=== PATIENT | female | born 1945 | race Caucasian/White ===

== ENCOUNTER 2022-10-05 23:40 | Emergency (ER) | payer MEDICARE, OTHER ==
--- NOTE | 2022-10-06 00:24 | ED Chest Pain ---
General Chief Complaint: Chest Pain Stated Complaint: CHEST DISCOMFORT Source: patient Exam Limitations: no limitations History of Present Illness Date Seen by Provider: Oct 06, 2022 Time Seen by Provider: 00:10 Initial Comments Here with report of onset of central chest tightness that started between 9 and 10 PM. Came in because it persisted. Denies shortness of breath, sweating or weakness but did have some dizziness that she noted yesterday that was interm ittent and brief. She is having 6 out of 10 pain currently. It is nonradiating. She has never had anything like this before. She does have history of high blood pressure. Denies any recent long trips or plane rides or recent trauma or surgery. Denies pain to her legs. Timing/Duration: 1-3 hours Severity/Quality: moderate, tightness Location: central Radiation: no radiation Activities at Onset: none Prior CP/Workup: no prior chest pain, no prior cardiac workup ASA po SHOW GIRL: No NTG SL SHOW GIRL: No Associated Symptoms: No abdominal pain, No back pain; dizziness; No edema, No fatigue, No fever/chills, No nausea/vomiting, No shortness of breath, No swelling/lump in chest, No weakness Allergies and Home Medications Allergies Coded Allergies: No Known Drug Allergies (Unverified , 10/06/22) Patient Home Medication List Home Medication List Reviewed: Yes Review of Systems Review of Systems Constitutional: see HPI; No chills, No fever EENTM: No Symptoms Reported Respiratory: Denies Cough, Denies Shortness of Air Cardiovascular: Chest Pain; Denies Edema, Denies Irregular Heart Rate Gastrointestinal: Denies Abdominal Pain, Denies Nausea, Denies Vomiting Genitourinary: No Symptoms Reported Musculoskeletal: No back pain, No muscle pain Skin: no symptoms reported All Other Systems Reviewed Negative Unless Noted: Yes Past Kizpwgv-Wktztl-Rookuv Hx Patient Social History Tobacco Use?: No Use of E-Cig and/or Vaping dev: No Substance use?: No Alcohol Use?: No Past Medical History Surgeries: Yes Orthopedic Respiratory: No Cardiac: Yes Hypertension Neurological: No Genitourinary: No Gastrointestinal: No Musculoskeletal: No Endocrine: No Family Medical History Reviewed Nursing Family Hx Physical Exam Vital Signs Vital Signs - First Documented 10/05/22 23:45 Temp 36.6 Pulse 96 Resp 16 B/P (MAP) 183/86 (118) Pulse Ox 94 O2 Delivery Room Air Capillary Refill : Height, Weight, BMI Height: '" Weight: lbs. oz. kg; BMI Method: General Appearance: No Apparent Distress, WD/WN HEENT: PERRL/EOMI, Pharynx Normal Neck: Non Tender, Supple Respiratory: Lungs Clear, Normal Breath Sounds Cardiovascular: No Murmur, Tachycardia Gastrointestinal: Non Tender, Soft Extremity: Normal Inspection, Normal Range of Motion, Non Tender, No Calf Tenderness Neurologic/Psychiatric: Alert, Oriented x3, No Motor/Sensory Deficits Skin: Normal Color, Warm/Dry Progress/Results/Core Measures Results/Orders Lab Results Laboratory Tests Test 10/06/22 00:38 10/06/22 02:44 Range/Units White Blood Count 7.4 4.3-11.0 10^3/uL Red Blood Count 4.22 3.80-5.11 10^6/uL Hemoglobin 12.8 11.5-16.0 g/dL Hematocrit 37 35-52 % Mean Corpuscular Volume 88 80-99 fL Mean Corpuscular Hemoglobin 30 25-34 pg Mean Corpuscular Hemoglobin Concent 34 32-36 g/dL Red Cell Distribution Width 12.9 10.0-14.5 % Platelet Count 255 130-400 10^3/uL Mean Platelet Volume 9.9 9.0-12.2 fL Immature Granulocyte % (Auto) 0 % Neutrophils (%) (Auto) 68 42-75 % Lymphocytes (%) (Auto) 22 12-44 % Monocytes (%) (Auto) 7 0-12 % Eosinophils (%) (Auto) 2 0-10 % Basophils (%) (Auto) 1 0-10 % Neutrophils # (Auto) 5.0 1.8-7.8 10^3/uL Lymphocytes # (Auto) 1.6 1.0-4.0 10^3/uL Monocytes # (Auto) 0.5 0.0-1.0 10^3/uL Eosinophils # (Auto) 0.2 0.0-0.3 10^3/uL Basophils # (Auto) 0.1 0.0-0.1 10^3/uL Immature Granulocyte # (Auto) 0.0 0.0-0.1 10^3/uL Prothrombin Time 13.0 12.2-14.7 SEC INR Comment 1.0 0.8-1.4 Activated Partial Thromboplast Time 33 24-35 SEC D-Dimer 0.73 H 0.00-0.49 UG/ML Sodium Level 137 135-145 MMOL/L Potassium Level 3.7 3.6-5.0 MMOL/L Chloride Level 104 98-107 MMOL/L Carbon Dioxide Level 20 L 21-32 MMOL/L Anion Gap 13 5-14 MMOL/L Blood Urea Nitrogen 21 H 7-18 MG/DL Creatinine 1.10 0.60-1.30 MG/DL Estimat Glomerular Filtration Rate 52 BUN/Creatinine Ratio 19 Glucose Level 170 H 70-105 MG/DL Calcium Level 9.9 8.5-10.1 MG/DL Corrected Calcium 9.7 8.5-10.1 MG/DL Magnesium Level 2.1 1.6-2.4 MG/DL Total Bilirubin 0.4 0.1-1.0 MG/DL Aspartate Amino Transf (AST/SGOT) 20 5-34 U/L Alanine Aminotransferase (ALT/SGPT) 23 0-55 U/L Alkaline Phosphatase 60 40-136 U/L Myoglobin 77.6 10.0-92.0 NG/ML Troponin I < 0.028 < 0.028 <0.028 NG/ML Total Protein 6.5 6.4-8.2 GM/DL Albumin 4.3 3.2-4.5 GM/DL Lipase 28 8-78 U/L My Orders Orders - NURIA HARVEY MD Ekg Tracing (10/05/22 23:42) Cbc With Automated Diff (10/06/22:19) Magnesium (10/06/22:19) Chest 1 View, Ap/Pa Only (10/06/22:) Comprehensive Metabolic Panel (10/06/22:) Myoglobin Serum (10/06/22:) Protime With Inr (10/06/22:) Partial Thromboplastin Time (10/06/22:) O2 (10/06/22:) Monitor-Rhythm Ecg Trace Only (10/06/22:) Lipid Panel (10/07/22 06:00) Ed Iv/Invasive Line Start (10/06/22:19) Lipase (10/06/22:) Fibrin Degradation Products (11/7/22 00:19) Troponin I [place] (10/06/22 00:19) Nitroglycerin 0.4 Mg Btl 25's (Nitrostat (10/06/22 00:30) Aspirin Chewable Tablet (Baby Aspirin Ch (10/06/22 00:30) Ed Iv/Invasive Line Start (10/06/22 00:19) Ns Iv 500 Ml (Sodium Chloride 0.9%) (10/06/22 00:30) Troponin I [place] (10/06/22 02:40) Medications Given in ED Current Medications Medications Dose Ordered Sig/Thomas Route Start Time Stop Time Status Last Admin Dose Admin Aspirin 324 mg ONCE ONCE PO 10/06/22 00:30 10/06/22 00:31 DC 10/06/22 00:45 324 MG Nitroglycerin 0.4 mg UD PRN SL 10/06/22 00:30 10/06/22 01:23 0.4 MG Sodium Chloride 500 ml @ 0 mls/hr Q0M ONCE IV 10/06/22 00:30 10/06/22 00:31 DC 10/06/22 00:59 999 MLS/HR Vital Signs/I&O 10/05/22 23:45 Temp 36.6 Pulse 96 Resp 16 B/P (MAP) 183/86 (118) Pulse Ox 94 O2 Delivery Room Air Progress Progress Note : Progress Note Seen and evaluated. IV, labs, EKG and chest x-ray ordered. We will go ahead and do aspirin 324 mg p.o. as well as nitro sublingual to ease chest pain. Normal saline 500 mL bolus ordered due to tachycardia. Monitor patient. 0138: Patient is pain-free. Initial troponin is negative. She is resting peacefully. Given her age and onset of symptoms, we will repeat troponin at around 0240. This will give us 2 hours since previous drawn approximately 5 to 6 hours since onset of pain. Discussed with patient who agrees. Monitor patient. 0323: Repeat troponin is negative. Patient remains pain-free. I do think she would benefit from cardiology follow-up and I will give her the name for Dr. Booker to follow-up with as he is on-call tonight. She will make the call in the morning for follow-up appointment. She will also follow-up with her primary care doctor. Discharged home with return precautions. Patient verbalized understanding of instructions and agreement with plan. Initial ECG Impression Date: Oct 06, 2022 Initial ECG Impression Time: 00:00 Initial ECG Rate: 96 Initial ECG Rhythm: S.Tach Comment Sinus rhythm with left axis deviation. Left axis noted. No evidence of ST elevation [place]. Flat T waves inferior. Interpreted by me. No previous available for comparison. Diagnostic Imaging Diagonstic Imaging: Xray Plain Films/CT/US/NM/MRI: chest Comments Single view chest x-ray shows no acute findings. Interpreted by me. See full report for details. Pending radiology report. Reviewed: Reviewed by Me Departure Impression Primary Impression: Chest pain Qualified Codes: R07.9 - Chest pain, unspecified Disposition: 01 HOME, SELF-CARE Condition: Improved Departure-Patient Inst. Decision time for Depature: 03:24 Referrals: AYE BOOKER MD NO,LOCAL PHYSICIAN (PCP) Primary Care Physician Patient Instructions: Chest Pain (DC) Add. Discharge Instructions: All discharge instructions reviewed with patient and/or family. Voiced und erstanding. Continue home medications as previously prescribed. Follow-up with your doctor this week for recheck and further evaluation. It is very important that you follow-up with the stable helper listed or of your choosing this week for recheck and further evaluation. Call Dr. Booker's office in the morning and let them know that you were seen in the emergency department and we have recommended follow-up this week for recheck and further evaluation with him for the chest pain. They should get you in this week. Return for worse pain, fever, vomiting, weakness, breathing problems, sweating, dizziness or other concerns as needed. NURIA HARVEY MD Oct 06, 2022 00:24
[2022-10-06] MEDS ORDERED: ASPIRIN 81 MG CHEW (CHILDREN'S ASA) PO ONE (00:30)
[2022-10-06] MEDS ORDERED: NS IV 500 ML 500 ML IV ONE (00:30)
[2022-10-06 00:45] LABS: BASOPHILS # (AUTO) 0.1 10^3/uL (0.0-0.1); BASOPHILS % (AUTO) 1 % (0-10); EOSINOPHILS # (AUTO) 0.2 10^3/uL (0.0-0.3); EOSINOPHILS % (AUTO) 2 % (0-10); HEMATOCRIT 37 % (35-52); HEMOGLOBIN 12.8 g/dL (11.5-16.0); LYMPHOCYTES # (AUTO) 1.6 10^3/uL (1.0-4.0); LYMPHOCYTES % (AUTO) 22 % (12-44); MEAN CORPUSCULAR HEMOGLOBIN 30 pg (25-34); MEAN CORPUSCULAR HGB CONC 34 g/dL (32-36); MEAN CORPUSCULAR VOLUME 88 fL (80-99); MEAN PLATELET VOLUME 9.9 fL (9.0-12.2); MONOCYTES # (AUTO) 0.5 10^3/uL (0.0-1.0); MONOCYTES % (AUTO) 7 % (0-12); NEUTROPHILS % (AUTO) 68 % (42-75); PLATELET COUNT 255 10^3/uL (130-400); WHITE BLOOD COUNT 7.4 10^3/uL (4.3-11.0)
[2022-10-06 00:56] LABS: ALBUMIN 4.3 GM/DL (3.2-4.5); POTASSIUM 3.7 MMOL/L (3.6-5.0)
[2022-10-06 00:57] LABS: CALCIUM 9.9 MG/DL (8.5-10.1)
[2022-10-06 00:59] LABS: TOTAL PROTEIN 6.5 GM/DL (6.4-8.2)
[2022-10-06 01:00] LABS: BILIRUBIN,TOTAL 0.4 MG/DL (0.1-1.0)
[2022-10-06] MEDS: NITROGLYCERIN 0.4 MG SL TABS BTL 25'S SL PRN ×2 (01:01→01:23)
[2022-10-06 01:02] LABS: CREATININE SERUM 1.1 MG/DL (0.60-1.30)
[2022-10-06 01:05] LABS: MAGNESIUM 2.1 MG/DL (1.6-2.4)
[2022-10-06 03:34] VITALS: BP 160/87
--- NOTE | 2022-10-06 06:23 | Diagnostic Imaging Report ---
EXAMINATION: Chest 1 view HISTORY: Chest pain COMPARISON: None available. FINDINGS: Heart size and pulmonary vasculature are normal. The lungs are clear without consolidation, pleural effusion, or pneumothorax. Degenerative changes of the thoracic spine. Osseous structures are otherwise intact. IMPRESSION: 1. No acute radiographic abnormality in the chest. Dictated by: Dictated on workstation # [id number]
== END 2022-10-06 03:35 | disposition home or self-care (01) ==
LOC: EDUNIT# 23:40 → ER 23:41
DX: R07.89 Other chest pain (principal); R00.0 Tachycardia, unspecified
CPT/HCPCS: 36415; 71045; 80053; 83690; 83735; 83874; 84484; 85025; 85379; 85610; 85730; 93005; 93041